=== PATIENT | male | born 1985 | race African-American/Black ===

== ENCOUNTER 2017-05-10 13:43 | Emergency (ER) | payer OTHER ==
[2017-05-10] MEDS: LIDOCAINE WITH 8.4% SOD BICARB 3 ML DISP.SYRIN. INJ ×2 (14:34)
[2017-05-10] MEDS: HYDROcodone/APAP 5/325MG 1 TAB TABLET PO ×2 (14:34)
[2017-05-10] MEDS: DIPHTH,PERTUSS(ACELL),TET TOX 0.5 ML DISP.SYRIN. VAX IM ×2 (14:53)
== END 2017-05-10 15:55 | disposition home or self-care (01) ==
LOC: ER 13:43
DX: S61.213A Laceration without foreign body of left middle finger without damage to nail, initial encounter (principal); M66.9 Spontaneous rupture of unspecified tendon; W26.8XXA Contact with other sharp object(s), not elsewhere classified, initial encounter; Y93.89 Activity, other specified; Y99.8 Other external cause status; Y92.89 Other specified places as the place of occurrence of the external cause
CPT/HCPCS: 12002; 73130; 90471; 90715; 99284-25

== ENCOUNTER 2017-05-17 06:09 | Emergency (ER) | payer OTHER ==
[2017-05-17] MEDS: ONDANSETRON ODT 4 MG TAB.RAPDIS. PO ×2 (07:05)
[2017-05-17] MEDS: HYDROmorphone 2 MG/ML VIAL IM ×2 (07:06)
== END 2017-05-17 07:38 | disposition home or self-care (01) ==
LOC: ER 06:09
DX: G89.18 Other acute postprocedural pain (principal); M79.642 Pain in left hand; F12.10 Cannabis abuse, uncomplicated; Z98.890 Other specified postprocedural states
CPT/HCPCS: 96372; 99283; J1170; Q0162

== ENCOUNTER 2019-03-06 00:07 | Emergency (ER) | payer OTHER ==
[~2019-03-06] VITALS: Ht 180.3 cm; Wt 72.6 kg
[~2019-03-06 00:07] MED LIST: CEPH500T PO; HYDR-3164 PO
[2019-03-06 00:09] VITALS: BP 134/80
[2019-03-06] MEDS ORDERED: SULF1TAB24 PO (00:31)
--- NOTE | 2019-03-06 00:32 | PHYS DOC ---
Past Medical History Past Medical History: No Pertinent History (ABHIJEET VALDEZ APRN) Past Surgical History: Other Additional Past Surgical Histo: LEFT HAND TENDON (ABHIJEET VALDEZ APRN) Alcohol Use: Occasionally Drug Use: Marijuana (ABHIJEET VALDEZ APRN) Attending Signature I have participated in the care of this patient and I have reviewed and agree with all pertinent clinical information above including history, exam, and recommendations. (MIKI ASHTON MD) Adult General Chief Complaint Chief Complaint: FINGER INJURY HPI HPI Patient is a 33 year old male patient who presents to the ED today with left middle finger swelling that began 3 days ago. Patient states he bites his nails because he is the only male in the house. Patient states he attempted to drain the finger yesterday unsuccessfully. Denies any fever. (ABHIJEET VALDEZ APRN) Review of Systems Review of Systems Constitutional: Denies fever or chills [] Musculoskeletal: Denies back pain or joint pain [] Integument: Reports left middle finger swelling Neurologic: Denies headache, focal weakness or sensory changes [] All other systems were reviewed and found to be within normal limits, except as documented in this note. (ABHIJEET VALDEZ APRN) Allergies Allergies Allergies Coded Allergies Type Severity Reaction Last Updated Verified No Known Drug Allergies 05/10/17 No (MIKI ASHTON MD) Physical Exam Physical Exam Constitutional: Well developed, well nourished, no acute distress, non-toxic appearance. [] Skin: Warm, dry, left middle finger with mild soft tissue swelling around the nail bed, there is an open area on the lateral aspect of the left middle finger. There is trace erythema to the left middle finger nailbed. There is no drainage. Neurovascular exam is intact to the left middle finger. Back: No tenderness, no CVA tenderness. [] Extremities: No tenderness, no cyanosis, no clubbing, ROM intact, no edema. [] Neurologic: Alert and oriented X 3, normal motor function, normal sensory function, no focal deficits noted. [] Psychologic: Affect normal, judgement normal, mood normal. [] (ABHIJEET VALDEZ APRN) Current Patient Data Vital Signs Vital Signs Date Time Temp Pulse Resp B/P (MAP) Pulse Ox O2 Delivery O2 Flow Rate FiO2 03/06/19 00:09 97.7 88 19 134/80 (98) 98 Room Air 97.7 (MIKI ASHTON MD) EKG EKG [] (ABHIJEET VALDEZ APRN) Radiology/Procedures Radiology/Procedures [] (ABHIJEET VALDEZ APRN) Course & Med Decision Making Course & Med Decision Making Pertinent Labs and Imaging studies reviewed. (See chart for details) This is a 33-year-old male patient presenting today with paronychia infection of the left middle finger. Tetanus is up-to-date. There is nothing to drain today. Tetanus is up-to-date. Discharged on Bactrim. Instructed to soak the finger in warm water with Epsom salts twice a day. Provided return precautions. Discouraged from chewing nails. (ABHIJEET VALDEZ APRN) Dragon Disclaimer Dragon Disclaimer This electronic medical record was generated, in whole or in part, using a voice recognition dictation system. (ABHIJEET VALDEZ APRN) Departure Departure Impression: Primary Impression: Paronychia of finger of left hand Disposition: HOME, SELF-CARE Condition: STABLE Referrals: NO PCP (PCP) follow up with your doctor in 1-2 weeks Patient Instructions: Paronychia, [id number] Additional Instructions: You have paronychia infection of the left middle finger. Please avoid bitting your nails. Please complete your antibiotics. Soak the finger in a warm water with Espon salt twice a day. Scripts Sulfamethoxazole/Trimethoprim (BACTRIM DS TABLET) 1 Each Tablet 1 TAB PO BID for 10 Days, #20 TAB 0 Refills Prov: ABHIJEET VALDEZ APRN 03/06/19 ABHIJEET VALDEZ APRN Mar 06, 2019 00:31 MIKI ASHTON MD Mar 06, 2019 04:32
== END 2019-03-06 00:34 | disposition home or self-care (01) ==
LOC: ER 00:07
DX: L03.012 Cellulitis of left finger (principal)
CPT/HCPCS: 99283

== ENCOUNTER 2019-05-22 08:44 | Emergency (ER) | payer OTHER ==
[~2019-05-22] VITALS: Ht 177.8 cm; Wt 72.7 kg
[~2019-05-22 08:44] MED LIST changes: +SULF1TAB24 PO
[2019-05-22] MEDS ORDERED: LIDO:MAALOX 1:1 20 ML SINGLE DOSE. SWSW ONE (09:30)
[2019-05-22] MEDS ORDERED: FAMOTIDINE 20 MG/2 ML VIAL IVP ONE (09:30)
[2019-05-22 09:32] LABS: BASO # 0.1 x10^3/uL (0.0-0.2); BASO % 1 % (0-3); EOS # 0.3 x10^3/uL (0.0-0.7); EOS % 3 % (0-3); HEMATOCRIT 45.6 % (39.0-53.0); HEMOGLOBIN 15.7 g/dL (13.0-17.5); LYMPH # 0.5 x10^3/uL (1.0-4.8); LYMPH % 5 % (24-48); MEAN CORPUSCULAR HEMOGLOBIN 33 pg (25-35); MEAN CORPUSCULAR HGB CONC 34 g/dL (31-37); MEAN CORPUSCULAR VOLUME 96 fL (79-100); MONO # 0.9 x10^3/uL (0.0-1.1); MONO % 9 % (0-9); NEUT # 7.7 x10^3/uL (1.8-7.7); NEUT % 82 % (31-73); PLATELET COUNT 199 x10^3/uL (140-400); RED BLOOD COUNT 4.74 x10^6/uL (4.30-5.70); RED CELL DISTRIBUTION WIDTH 14.2 % (11.5-14.5); WHITE BLOOD COUNT 9.4 x10^3/uL (4.0-11.0)
[2019-05-22 09:34] LABS: BILIRUBIN,URINE NEGATIVE (NEG); CLARITY,URINE CLEAR; COLOR,URINE YELLOW; NITRITE,URINE NEGATIVE (NEG); PH,URINE 8.5; PROTEIN,URINE NEGATIVE (NEG-TRACE)
[2019-05-22] MEDS ORDERED: KETOROLAC 30 MG/ML VIAL. IM ONE (09:45)
[2019-05-22 09:48] LABS: CALCIUM 9.5 mg/dL (8.5-10.1); CREATININE 1.3 mg/dL (0.7-1.3); GFR 77.9; POTASSIUM 3.5 mmol/L (3.5-5.1)
[2019-05-22 09:51] LABS: PROTHROMBIN TIME PATIENT 13.4 SEC (11.7-14.0)
[2019-05-22 09:51] LABS: SQUAMOUS EPITHELIAL CELL,UR FEW /LPF
[2019-05-22 09:52] LABS: BACTERIA,URINE FEW /HPF (0-FEW); WBC,URINE OCC /HPF (0-4)
[2019-05-22 09:53] LABS: ALBUMIN 4.3 g/dL (3.4-5.0); ALBUMIN/GLOBULIN RATIO 1.3 (1.0-1.7); TOTAL BILIRUBIN 0.9 mg/dL (0.2-1.0); TOTAL PROTEIN 7.6 g/dL (6.4-8.2)
--- NOTE | 2019-05-22 10:22 | PHYS DOC ---
Past Medical History Past Medical History: No Pertinent History Past Surgical History: Other Additional Past Surgical Histo: LEFT HAND TENDON Smoking Status: Current Every Day Smoker Additional Information: Smokes approx. 1/2ppd Alcohol Use: Occasionally Drug Use: Marijuana Social History Narrative: Last Marijuana use 05/21/19 Adult General Chief Complaint Chief Complaint: HEARTBURN/GI DISTRESS [facility] HPI Patient is a 33 year old male who presented to ER today for evaluation of fever, chills, nausea, body ache, back pain, abdominal pain, epigastric pain since yesterday. She denies any injury, denies any diarrhea or vomiting. Patient had a history of gastroesophageal acid reflux the, and he is not on any medication for. Patient admitted to drinking alcohol socially. He denies any blood in his stool, no vomiting blood. His was recently treated for flu. All other ROS is negative unless otherwise noted in HPI Review of Systems Review of Systems See above Current Medications Current Medications Current Medications Medications (Trade) Dose Ordered Sig/Priya Start Time Stop Time Status Last Admin Dose Admin Famotidine (Pepcid Vial) 20 mg 1X ONCE 05/22/19 09:30 05/22/19 09:34 DC 05/22/19 09:46 20 MG Info (CONTRAST GIVEN -- Rx MONITORING) 1 each PRN DAILY PRN 05/22/19 11:15 05/22/19 12:25 DC Iohexol (Omnipaque 300 Mg/ml) 75 ml 1X ONCE 05/22/19 11:00 05/22/19 11:05 DC 05/22/19 11:19 75 ML Ketorolac Tromethamine (Toradol 30mg Vial) 30 mg 1X ONCE 05/22/19 09:45 05/22/19 09:51 DC 05/22/19 09:46 30 MG Multi-Ingredient Mouthwash/Gargle (Gi Cocktail) 20 ml 1X ONCE 05/22/19 09:30 05/22/19 09:34 DC 05/22/19 09:45 20 ML Allergies Allergies Allergies Coded Allergies Type Severity Reaction Last Updated Verified No Known Drug Allergies 05/10/17 No Physical Exam Physical Exam See above Constitutional: Well developed, well nourished, no acute distress, non-toxic a ppearance. [] HENT: Normocephalic, atraumatic, bilateral external ears normal, oropharynx moist, no oral exudates, nose normal. [] Eyes: PERRLA, EOMI, conjunctiva normal, no discharge. [] Neck: Normal range of motion, no tenderness, supple, no stridor. [] Cardiovascular:Heart rate regular rhythm, no murmur [] Lungs & Thorax: Bilateral breath sounds clear to auscultation [] Abdomen: Bowel sounds normal, soft, There is tenderness to palpation in epigastric area, no masses, no pulsatile masses. [] Skin: Warm, dry, no erythema, no rash. [] Back: There is midline tenderness to palpation in lumbar area, no CVA tenderness. [] Extremities: No tenderness, no cyanosis, no clubbing, ROM intact, no edema. [] Neurologic: Alert and oriented X 3, normal motor function, normal sensory fun ction, no focal deficits noted. [] Psychologic: Affect normal, judgement normal, mood normal. [] Current Patient Data Vital Signs Vital Signs Date Time Temp Pulse Resp B/P (MAP) Pulse Ox O2 Delivery O2 Flow Rate FiO2 05/22/19 10:40 94 129/76 (93) 97 Room Air 05/22/19 09:00 99.3 17 99.3 Lab Values Laboratory Tests Test 05/22/19 09:10 05/22/19 09:15 05/22/19 10:10 Urine Collection Type Void Urine Color Yellow Urine Clarity Clear Urine pH 8.5 Urine Specific [place] 1.020 Urine Protein Negative mg/dL (NEG-TRACE) Urine Glucose (UA) Negative mg/dL (NEG) Urine Ketones (Stick) 15 mg/dL (NEG) Urine Blood Negative (NEG) Urine Nitrite Negative (NEG) Urine Bilirubin Negative (NEG) Urine Urobilinogen Dipstick 1.0 mg/dL (0.2 mg/dL) Urine Leukocyte Esterase Negative (NEG) Urine RBC 1-2 /HPF (0-2) Urine WBC Occ /HPF (0-4) Urine Squamous Epithelial Cells Few /LPF Urine Bacteria Few /HPF (0-FEW) Urine Mucus Marked /LPF White Blood Count 9.4 x10^3/uL (4.0-11.0) Red Blood Count 4.77 x10^6/uL (4.30-5.70) Hemoglobin 15.7 g/dL (13.0-17.5) Hematocrit 45.6 % (39.0-53.0) Mean Corpuscular Volume 96 fL (79-100) Mean Corpuscular Hemoglobin 33 pg (25-35) Mean Corpuscular Hemoglobin Concent 34 g/dL (31-37) Red Cell Distribution Width 14.2 % (11.5-14.5) Platelet Count 199 x10^3/uL (140-400) Neutrophils (%) (Auto) 82 % (31-73) H Lymphocytes (%) (Auto) 5 % (24-48) L Monocytes (%) (Auto) 9 % (0-9) Eosinophils (%) (Auto) 3 % (0-3) Basophils (%) (Auto) 1 % (0-3) Neutrophils # (Auto) 7.7 x10^3/uL (1.8-7.7) Lymphocytes # (Auto) 0.5 x10^3/uL (1.0-4.8) L Monocytes # (Auto) 0.9 x10^3/uL (0.0-1.1) Eosinophils # (Auto) 0.3 x10^3/uL (0.0-0.7) Basophils # (Auto) 0.1 x10^3/uL (0.0-0.2) Absolute Reticulocyte Count 0.062 x10^6/uL (0.020-0.120) Percent Reticulocyte Count 1.3 % (0.5-2.3) Immature Reticulocyte Fraction 0.44 (0.20-0.60) Prothrombin Time 13.4 SEC (11.7-14.0) Prothrombin Time INR 1.1 (0.8-1.1) Activated Partial Thromboplast Time 27 SEC (24-38) Sodium Level 140 mmol/L (136-145) Potassium Level 3.5 mmol/L (3.5-5.1) Chloride Level 102 mmol/L (98-107) Carbon Dioxide Level 24 mmol/L (21-32) Anion Gap 14 (6-14) Blood Urea Nitrogen 9 mg/dL (8-26) Creatinine 1.3 mg/dL (0.7-1.3) Estimated GFR (Cockcroft-Gault) 77.9 BUN/Creatinine Ratio 7 (6-20) Glucose Level 98 mg/dL (70-99) Calcium Level 9.5 mg/dL (8.5-10.1) Total Bilirubin 0.9 mg/dL (0.2-1.0) Aspartate Amino Transferase (AST) 24 U/L (15-37) Alanine Aminotransferase (ALT) 37 U/L (16-63) Alkaline Phosphatase 68 U/L (46-116) Total Protein 7.6 g/dL (6.4-8.2) Albumin 4.3 g/dL (3.4-5.0) Albumin/Globulin Ratio 1.3 (1.0-1.7) Lipase 66 U/L (73-393) L Influenza Type A Antigen Negative (NEGATIVE) Influenza Type B Antigen Positive (NEGATIVE) Laboratory Tests 05/22/19 09:15 Laboratory Tests 05/22/19 09:15 EKG EKG [] Radiology/Procedures Radiology/Procedures [][address] [id number] IMAGING REPORT Signed PATIENT: HOLLY SALAZARCOUNT: [id number] : 1985 LOCATION: ER AGE: 33 SEX: M EXAM STATUS: REG ER ORD. PHYSICIAN: SAIRA NASH DO REASON: LOWER BACK PAIN X1 DAY. PT DENIES ANY INJURY PROCEDURE: LUMBAR SPINE 2-3V PROCEDURE: LUMBAR SPINE 2-3V STUDY DATE: 05/22/2019 CLINICAL INDICATION / HISTORY: Low back pain for one day. TECHNIQUE: AP and lateral views of the lumbar spine, along with a cone-down lateral view of the lumbosacral junction. COMPARISON: None FINDINGS: Five lumbar segments are identified. Lumbar vertebral bodies are normal in height and alignment. Disc height is maintained. Pedicles are intact. Visualized sacroiliac joints and hips are unremarkable. Soft tissues are within normal limits. IMPRESSION: Normal L-spine x-ray series. Electronically signed by: Coco Tinsley MD (05/22/2019 10:22 AM) [facility] DICTATED and SIGNED BY: COCO TINSLEY MD DATE: 05/22/[address] [id number] IMAGING REPORT Signed PATIENT: HOLLY SALAZAR: [id number] : 1985 LOCATION: ER AGE: 33 SEX: M EXAM STATUS: REG ER ORD. PHYSICIAN: SAIRA NASH DO REASON: mid abdominal pain with nausea PROCEDURE: CT ABD PELV W/ IV CONTRST ONLY EXAM: CT Abdomen and Pelvis with IV contrast INDICATION: Mid abdominal pain with nausea TECHNIQUE: Multi-detector row CT images were acquired from the lung bases through the abdomen and pelvis with the use of IV contrast. Sagittal and coronal images were acquired from the transaxial data. All CT scans performed at this facility utilize dose optimization techniques as appropriate to the exam, including the following: Automated exposure control and adjustment of the mA and/or KV according to patient size (this includes techniques or standardized protocols for targeted exams where dose is indication/reason for exam). IV CONTRAST: Administered ORAL CONTRAST: Not administered COMPARISON: None FINDINGS: LOWER CHEST: Unremarkable LIVER: Unremarkable BILIARY SYSTEM: Gallbladder is unremarkable. Bile ducts are not dilated. PANCREAS: Unremarkable SPLEEN: Unremarkable ADRENALS: Unremarkable KIDNEYS & URETERS: Unremarkable BLADDER: Unremarkable REPRODUCTIVE ORGANS: Unremarkable GASTROINTESTINAL: The stomach, small bowel, and colon are unremarkable. The appendix is normal. MESENTERY/PERITONEUM/RETROPERITONEUM: Unremarkable VASCULAR: Unremarkable LYMPH NODES: No adenopathy OSSEOUS & SOFT TISSUES: Unremarkable IMPRESSION: Unremarkable CT of the abdomen and pelvis. Electronically signed by: Coco Tinsley MD (05/22/2019 11:36 AM) [facility] DICTATED and SIGNED BY: COCO TINSLEY MD DATE: 05/22/19 1136 Course & Med Decision Making Course & Med Decision Making Pertinent Labs and Imaging studies reviewed. (See chart for details) [] Dragon Disclaimer Dragon Disclaimer This electronic medical record was generated, in whole or in part, using a voice recognition dictation system. Departure Departure Impression: Primary Impression: Influenza Additional Impression: Gastritis Disposition: HOME, SELF-CARE Condition: STABLE Referrals: NO PCP (PCP) follow up with your doctor on Friday for reevaluation. Patient Instructions: Gastritis, Adult, Influenza, Adult Additional Instructions: Thank you for visiting our Emergency Department. We appreciate you trusting us with your care. If any additional problems come up don't hesitate to return to visit us. Please follow up with your primary care provider so they can plan ad ditional care if needed and know about the problem that you had. If symptoms worsen come back to the Emergency Department. Any concerning symptoms that start such as chest pain, shortness of air, weakness or numbness on one side of the body, running high fevers or any other concerning symptoms return to the ER. Scripts Omeprazole Magnesium (PRILOSEC OTC) 20 Mg Tablet.dr 20 MG PO DAILY for 30 Days, #30 TAB Prov: SAIRA NASH DO 05/22/19 Oseltamivir Phosphate (TAMIFLU) 75 Mg Capsule 1 CAP PO BID, #10 CAP Prov: SAIRA NASH DO 05/22/19 Problem Qualifiers SAIRA NASH DO May 22, 2019 10:22
--- NOTE | 2019-05-22 10:25 | RAD ---
PROCEDURE: LUMBAR SPINE 2-3V STUDY DATE: 05/22/2019 CLINICAL INDICATION / HISTORY: Low back pain for one day. TECHNIQUE: AP and lateral views of the lumbar spine, along with a cone-down lateral view of the lumbosacral junction. COMPARISON: None FINDINGS: Five lumbar segments are identified. Lumbar vertebral bodies are normal in height and alignment. Disc height is maintained. Pedicles are intact. Visualized sacroiliac joints and hips are unremarkable. Soft tissues are within normal limits. IMPRESSION: Normal L-spine x-ray series. Electronically signed by: Marika Tinsley MD (05/22/2019 10:22 AM) [facility]
[2019-05-22 10:49] LABS: INFLUENZA A PATIENT NEGATIVE (NEGATIVE)
[2019-05-22 10:50] LABS: INFLUENZA B PATIENT POSITIVE (NEGATIVE)
[2019-05-22] MEDS ORDERED: IOHEXOL 300 MG/ML 100ML VIAL. IV ONE (11:00)
[2019-05-22] MEDS ORDERED: CONTRAST GIVEN. MC PRN (11:15)
--- NOTE | 2019-05-22 11:39 | RAD ---
EXAM: CT Abdomen and Pelvis with IV contrast INDICATION: Mid abdominal pain with nausea TECHNIQUE: Multi-detector row CT images were acquired from the lung bases through the abdomen and pelvis with the use of IV contrast. Sagittal and coronal images were acquired from the transaxial data. All CT scans performed at this facility utilize dose optimization techniques as appropriate to the exam, including the following: Automated exposure control and adjustment of the mA and/or KV according to patient size (this includes techniques or standardized protocols for targeted exams where dose is indication/reason for exam). IV CONTRAST: Administered ORAL CONTRAST: Not administered COMPARISON: None FINDINGS: LOWER CHEST: Unremarkable LIVER: Unremarkable BILIARY SYSTEM: Gallbladder is unremarkable. Bile ducts are not dilated. PANCREAS: Unremarkable SPLEEN: Unremarkable ADRENALS: Unremarkable KIDNEYS & URETERS: Unremarkable BLADDER: Unremarkable REPRODUCTIVE ORGANS: Unremarkable GASTROINTESTINAL: The stomach, small bowel, and colon are unremarkable. The appendix is normal. MESENTERY/PERITONEUM/RETROPERITONEUM: Unremarkable VASCULAR: Unremarkable LYMPH NODES: No adenopathy OSSEOUS & SOFT TISSUES: Unremarkable IMPRESSION: Unremarkable CT of the abdomen and pelvis. Electronically signed by: Marika Tinsley MD (05/22/2019 11:36 AM) [facility]
[2019-05-22] MEDS ORDERED: OMEP20TA63 PO (12:08)
[2019-05-22] MEDS ORDERED: OSEL75CA PO (12:08)
[2019-05-22 12:16] VITALS: BP 119/67
== END 2019-05-22 12:14 | disposition home or self-care (01) ==
LOC: ER 08:44
DX: J10.1 Influenza due to other identified influenza virus with other respiratory manifestations (principal); K29.70 Gastritis, unspecified, without bleeding; R10.13 Epigastric pain; M54.5 Low back pain; K21.9 Gastro-esophageal reflux disease without esophagitis; F17.200 Nicotine dependence, unspecified, uncomplicated; F12.90 Cannabis use, unspecified, uncomplicated; Z98.890 Other specified postprocedural states
CPT/HCPCS: 36415; 72100; 74177; 80053; 81001; 83690; 85025; 85045; 85610; 85730; 87804; 96372; 96374; 99285; J1885; J3490; Q9967

== ENCOUNTER 2020-10-18 23:08 | Emergency (ER) | payer OTHER ==
[~2020-10-18] VITALS: Ht 177.8 cm; Wt 72.7 kg
[~2020-10-18 23:08] MED LIST changes: +OMEP20TA63 PO; +OSEL75CA PO
[2020-10-19 00:04] LABS: BILIRUBIN,URINE NEGATIVE (NEG); CLARITY,URINE CLEAR; COLOR,URINE YELLOW; NITRITE,URINE NEGATIVE (NEG); PROTEIN,URINE NEGATIVE (NEG-TRACE)
[2020-10-19 00:08] VITALS: BP 131/92
[2020-10-19 00:13] LABS: BACTERIA,URINE 0 /HPF (0-FEW); RBC,URINE 0 /HPF (0-2); WBC,URINE OCC /HPF (0-4)
[2020-10-19] MEDS ORDERED: PHEN100T82 PO (01:52)
[2020-10-19] MEDS ORDERED: CEPH500C PO (01:52)
--- NOTE | 2020-10-19 01:52 | ED.ADGEN ---
Past Medical History Past Medical History: No Pertinent History Past Surgical History: Other Additional Past Surgical Histo: LEFT HAND TENDON Smoking Status: Current Every Day Smoker Alcohol Use: Occasionally Drug Use: Marijuana General Adult EDM: Chief Complaint: PAIN ON URINATION HPI: HPI: Patient is a 35-year-old male presents to the emergency room complaining of dysuria for the last 3 days. Patient states that his had a UTI and he believes that he may have a UTI as well. He states that he has some urinary hesitancy and then has burning with urination when he is able to urinate. He denies any discharge. He states that he has no concerns for sexually tra nsmitted diseases. He denies any flank or back pain. He is not had any nausea or vomiting. He denies any kind of fever. Review of Systems: Review of Systems: Complete ROS is negative unless otherwise documented in HPI Allergies: Allergies: Allergies Coded Allergies Type Severity Reaction Last Updated Verified No Known Drug Allergies 05/10/17 No Physical Exam: PE: General: Awake, alert, NAD. Well Nourished, well hydrated. Cooperative HEENT: Atraumatic, EOMI, PERRL, airway patent, moist oral mucosa Neck: Supple, trachea midline Respiratory: CTA bilaterally, normal effort, no wheezing/crackles CV: RRR, no murmur, cap refill <2 GI: Soft, nondistended, nontender, no masses MSK: No obvious deformities Skin: Warm, dry, intact Neuro: A&O x3, speech NL, sensory and motor grossly intact, no focal deficits Psych: Normal affect, normal mood, not suicidal or homicidal Current Patient Data: Labs: Laboratory Tests Test 10/18/20 23:55 Urine Collection Type Unknown Urine Color Yellow Urine Clarity Clear Urine pH 6.0 (<5.0-8.0) Urine Specific [place] <=1.005 (1.000-1.030) Urine Protein Negative mg/dL (NEG-TRACE) Urine Glucose (UA) Negative mg/dL (NEG) Urine Ketones (Stick) Negative mg/dL (NEG) Urine Blood Negative (NEG) Urine Nitrite Negative (NEG) Urine Bilirubin Negative (NEG) Urine Urobilinogen Dipstick 1.0 mg/dL (0.2 mg/dL) Urine Leukocyte Esterase Negative (NEG) Urine RBC 0 /HPF (0-2) Urine WBC Occ /HPF (0-4) Urine Squamous Epithelial Cells Occ /LPF Urine Bacteria 0 /HPF (0-FEW) Urine Mucus Slight /LPF Urine Chlamydia DNA (PCR) Negative (Negative) Neisseria gonorrhoeae DNA (PCR) Negative (Negative) Vital Signs: Vital Signs Date Time Temp Pulse Resp B/P (MAP) Pulse Ox O2 Delivery O2 Flow Rate FiO2 10/19/20 00:08 98.6 91 16 131/92 (105) 99 Room Air 98.6 EKG: EKG: [] Heart Score: C/O Chest Pain: N/A Risk Factors: Risk Factors: DM, Current or recent (<one month) smoker, HTN, HLP, family history of CAD, obesity. Risk Scores: Score 0 - 3: 2.5% MACE over next 6 weeks - Discharge Home Score 4 - 6: 20.3% MACE over next 6 weeks - Admit for Clinical Observation Score 7 - 10: 72.7% MACE over next 6 weeks - Early Invasive Strategies Radiology/Procedures: Radiology/Procedures: [] Course & Med Decision Making: Course & Med Decision Making Pertinent Labs and Imaging studies reviewed. (See chart for details) Patient is a 35-year-old male who presents to the emergency room complaining of dysuria. Patient has some small amount of white blood cells in his urine. We will place him on Macrobid. Patient does not have any systemic symptoms. Does not have any signs or symptoms of a kidney stone. At this time patient is stable and will be discharged home. Patient's test results and vitals while in the ED were fully reviewed and discussed with the patient. Patient is stable and at this time does not need admission to the hospital. We have discussed strict return precautions and the importance of following up with their Primary Care Physician. Patient stated understanding and was given an opportunity to ask any questions. Patient is in agreement with plan. Dragon Disclaimer: Dragon Disclaimer: This electronic medical record was generated, in whole or in part, using a voice recognition dictation system. Departure Departure Impression: Primary Impression: Dysuria Disposition: HOME / SELF CARE / HOMELESS Condition: STABLE Referrals: Letty MANZANO MD (PCP) Patient Instructions: Dysuria Scripts Cephalexin (CEPHALEXIN) 500 Mg Capsule 1 CAP PO BID for 5 Days, #10 CAP Prov: ARACELIS COE MD 10/19/20 Phenazopyridine Hcl (PYRIDIUM) 100 Mg Tablet 1 TAB PO TID for urinary discomfort for 2 Days, #6 TAB 0 Refills Prov: ARACELIS COE MD 10/19/20 ARACELIS COE MD Oct 19, 2020 01:52
== END 2020-10-19 02:00 | disposition home or self-care (01) ==
LOC: ER 23:08
DX: R30.0 Dysuria (principal); F17.200 Nicotine dependence, unspecified, uncomplicated
CPT/HCPCS: 81001; 87491; 87591; 99283